=== PATIENT | male | born 1970 | race Two or more races ===

== ENCOUNTER → 2020-12-02 | Emergency (ER) | payer OTHER ==
[~2020-12-02] VITALS: Ht 167.6 cm; Wt 78.2 kg
[~2020-12-02] MED LIST: DOXYCYCLINE HYCLATE 100 MG TABLET PO ONE; GLIP2.5ER PO; INSULIN REGULAR, HUMAN 100 UNITS/ML SQ ONE; KETOROLAC TROMETHAMINE 30 MG/ML VIAL IVP ONE; METF-960 PO; NOCURR; PERTUSS(ACELL),DIPH,TET VAC/PF 0.5 ML SYRINGE IM ONE; SITA25 PO; SODIUM CHLORIDE 0.9% 1,000 ML IV ONE
[2020-12-02 03:10] LABS: BASOPHILS % (AUTO) 0.5 % (0.0-2.0); EOSINOPHILS % (AUTO) 4.2 % (1.0-6.0); HEMATOCRIT 42.2 % (41-53); HEMOGLOBIN 13.9 g/dL (13.5-17.5); LYMPHOCYTES # (AUTO) 2.1 K/uL (1.0-4.8); LYMPHOCYTES % (AUTO) 16.5 % (22.0-44.0); MEAN CORPUSCULAR HEMOGLOBIN 28.8 pg (26.0-34.0); MEAN CORPUSCULAR HGB CONC 32.9 G/dL (31.0-37.0); MEAN CORPUSCULAR VOLUME 88 fL (80-100); MONOCYTES # (AUTO) 0.8 K/uL (0.1-1.0); MONOCYTES % (AUTO) 6.5 % (2.0-9.0); NEUTROPHILS # (AUTO) 9.1 K/uL (1.8-7.7); NEUTROPHILS % (AUTO) 72.3 % (40.0-70.0); PLATELET COUNT (AUTO) 307 K/uL (150-450); RED BLOOD CELL COUNT(AUTO) 4.82 MIL/uL (4.50-5.90); RED CELL DISTRIBUTION WIDTH 13.3 % (11.5-14.5)
[2020-12-02 03:28] LABS: ALANINE AMINOTRANSFERASE 28 U/L (12-78); ALBUMIN 3.8 g/dL (3.4-5.0); ALKALINE PHOSPHATASE 130 U/L (46-116); ANION GAP 10 mmol/L (8-16); ASPARTATE AMINOTRANSFERASE 18 U/L (15-37); BILIRUBIN,TOTAL 0.3 mg/dL (0.1-1.0); CALCIUM, TOTAL 9.1 mg/dL (8.8-10.5); CARBON DIOXIDE 29 mmol/L (22-29); CHLORIDE 95 mmol/L (98-107); CREATININE 1.12 mg/dL (0.60-1.30); GLOMERULAR FILTR. RATE CALC > 60 mL/min (>60); SODIUM SERUM 134 mmol/L (136-145); UREA NITROGEN, BLOOD 15 mg/dL (7-18)
[2020-12-02 03:30] LABS: GLUCOSE,RANDOM 639 mg/dL (70-110)
[2020-12-02 04:30] VITALS: BP 145/86
== END | disposition home or self-care (01) ==
LOC: EMS 02:02
DX: S61.432A Puncture wound without foreign body of left hand, initial encounter (principal); E11.65 Type 2 diabetes mellitus with hyperglycemia; L08.9 Local infection of the skin and subcutaneous tissue, unspecified; X58.XXXA Exposure to other specified factors, initial encounter; Y93.89 Activity, other specified; Y92.89 Other specified places as the place of occurrence of the external cause; Y99.8 Other external cause status
CPT/HCPCS: 73130; 80053; 85025; 90471; 90715; 96361; 96372; 96374; 99284; J1815; J1885; J7030

== ENCOUNTER 2023-01-02 01:53 | Emergency (ER) | payer OTHER ==
[~2023-01-02] VITALS: Ht 167.6 cm; Wt 77.3 kg
[~2023-01-02 01:53] MED LIST changes: -DOXYCYCLINE HYCLATE 100 MG TABLET PO ONE; -GLIP2.5ER PO; +GLIP2.5T2 PO; -INSULIN REGULAR, HUMAN 100 UNITS/ML SQ ONE; -KETOROLAC TROMETHAMINE 30 MG/ML VIAL IVP ONE; +METF-1211 PO; -METF-960 PO; -PERTUSS(ACELL),DIPH,TET VAC/PF 0.5 ML SYRINGE IM ONE; -SODIUM CHLORIDE 0.9% 1,000 ML IV ONE
[2023-01-02 02:00] VITALS: BP 137/70
[2023-01-02] MEDS ORDERED: METF-1211 PO (02:09)
[2023-01-02] MEDS ORDERED: ASPI-1450 PO (02:10)
[2023-01-02] MEDS ORDERED: INSLAN SQ (02:10)
[2023-01-02] MEDS ORDERED: CefTRIAXone SODIUM 1 GM/VIAL IM ONE (04:15)
[2023-01-02] MEDS ORDERED: LIDOCAINE/PF 1% 2 ML VIAL IM ONE (04:15)
== END 2023-01-02 04:32 | disposition home or self-care (01) ==
LOC: EMS 01:54
DX: L03.115 Cellulitis of right lower limb (principal); E11.9 Type 2 diabetes mellitus without complications; I10 Essential (primary) hypertension; F12.90 Cannabis use, unspecified, uncomplicated; F17.210 Nicotine dependence, cigarettes, uncomplicated
CPT/HCPCS: 99283; 96372; J0696; J3490

== ENCOUNTER 2023-06-28 23:32 | Emergency (ER) | payer OTHER ==
[~2023-06-28] VITALS: Ht 165.1 cm; Wt 77.3 kg
[~2023-06-28 23:32] MED LIST changes: +ASPI-1450 PO; -GLIP2.5T2 PO; +INSLAN SQ; -NOCURR; -SITA25 PO
[2023-06-28 23:41] VITALS: TEMP 97.8
[2023-06-28 23:56] LABS: GLUCOMETER DEV NAME(LOC) ER.6; GLUCOSE,POINT OF CARE 292 MG/DL (70-110)
[2023-06-29 00:09] LABS: CALCIUM, TOTAL 9.5 mg/dL (8.8-10.5); CREATININE 1.41 mg/dL (0.60-1.30); POTASSIUM 4.1 mmol/L (3.5-5.1)
[2023-06-29 00:12] LABS: BASOPHILS % (AUTO) 1.2 % (0.0-2.0); EOSINOPHILS % (AUTO) 3.9 % (1.0-6.0); HEMATOCRIT 40.5 % (41-53); HEMOGLOBIN 13.5 g/dL (13.5-17.5); LYMPHOCYTES # (AUTO) 2.9 K/uL (1.0-4.8); LYMPHOCYTES % (AUTO) 32.7 % (22.0-44.0); MEAN CORPUSCULAR HEMOGLOBIN 28.3 pg (26.0-34.0); MEAN CORPUSCULAR HGB CONC 33.3 G/dL (31.0-37.0); MEAN CORPUSCULAR VOLUME 85 fL (80-100); MONOCYTES # (AUTO) 0.7 K/uL (0.1-1.0); MONOCYTES % (AUTO) 7.9 % (2.0-9.0); NEUTROPHILS # (AUTO) 4.8 K/uL (1.8-7.7); NEUTROPHILS % (AUTO) 54.3 % (40.0-70.0); PLATELET COUNT (AUTO) 322 K/uL (150-450); RED BLOOD CELL COUNT(AUTO) 4.76 MIL/uL (4.50-5.90); RED CELL DISTRIBUTION WIDTH 14.4 % (11.5-14.5); WHITE BLOOD COUNT (AUTO) 8.8 K/uL (4.5-11.0)
[2023-06-29 00:14] LABS: ALBUMIN 3.4 g/dL (3.4-5.0); BILIRUBIN,TOTAL 0.4 mg/dL (0.1-1.0); TOTAL PROTEIN, SERUM 7.6 g/dL (6.4-8.2)
[2023-06-29] MEDS ORDERED: SODIUM CHLORIDE 0.9% 1,000 ML IV ONE (01:00)
[2023-06-29] MEDS ORDERED: KETOROLAC TROMETHAMINE 30 MG/ML VIAL IVP ONE (01:00)
[2023-06-29] MEDS ORDERED: ONDANSETRON HCL 4 MG/2 ML VIAL IVP ONE (01:00)
[2023-06-29] MEDS ORDERED: SODIUM CHLORIDE 0.9% 100 ML ONE (01:46)
[2023-06-29] MEDS ORDERED: IOHEXOL 350 MG/ML 100 ML VIAL ONE (01:48)
[2023-06-29 05:22] VITALS: BP 177/121; PULSE 96; RESP 17
[2023-06-29] MEDS ORDERED: CloNIDine HCL 0.1 MG TABLET PO ONE (05:30)
== END 2023-06-29 05:42 | disposition left against medical advice (07) ==
LOC: EMS 23:33
DX: R19.7 Diarrhea, unspecified (principal); R10.9 Unspecified abdominal pain; R11.2 Nausea with vomiting, unspecified; E11.9 Type 2 diabetes mellitus without complications; I10 Essential (primary) hypertension; F17.210 Nicotine dependence, cigarettes, uncomplicated; F12.90 Cannabis use, unspecified, uncomplicated
CPT/HCPCS: 99285; 80053; 82962; 83690; 85025; 36415; 74177; 96374; 76700; 96361; 96375; 93005; J1885; J2405; Q9967; J7030; J7050

== ENCOUNTER 2025-03-03 22:04 | Emergency (ER) | payer OTHER ==
[~2025-03-03] VITALS: Ht 152.4 cm; Wt 75.0 kg
[2025-03-03 22:31] VITALS: TEMP 98.6
[2025-03-04 00:08] VITALS: BP 165/112; PULSE 98; RESP 19; O2SAT 100
== END 2025-03-04 03:21 | disposition left against medical advice (07) ==
LOC: EMS 22:04
DX: M25.549 Pain in joints of unspecified hand (principal); Z53.21 Procedure and treatment not carried out due to patient leaving prior to being seen by health care provider
CPT/HCPCS: 99281; Z7502